=== PATIENT | male | born 1965 | race Caucasian/White ===

== ENCOUNTER 2024-05-23 11:37 | Day surgery (SDC) | payer OTHER ==
[~2024-05-23] VITALS: Ht 157.5 cm; Wt 71.7 kg
[2024-05-23] MEDS ORDERED: fentaNYL citrate 0.05 MG/ML VIAL ONE (13:24)
[2024-05-23] MEDS ORDERED: MIDAZOLAM 2 MG/2 ML VIAL ONE (13:24)
[2024-05-23] MEDS: MIDAZOLAM 2 MG/2 ML VIAL IVP ONE (13:32)
== END 2024-05-23 14:42 | disposition home or self-care (01) ==
LOC: MDS 11:37 → MMU 11:38 → MDS 14:42
PROVIDERS: ATTEND Internal Medicine Gastroenterology
DX: K21.9 Gastro-esophageal reflux disease without esophagitis (principal); I10 Essential (primary) hypertension; Z79.899 Other long term (current) drug therapy
CPT/HCPCS: 43235; 82948; J2250; J3010